=== PATIENT | male | born 1940 | race Caucasian/White ===

== ENCOUNTER 2022-12-13 13:33 | Outpatient (CLI) | payer MEDICARE, OTHER | END 2022-12-13 13:34 | disposition home or self-care (01) | LOC: LAB.N 13:33 | PROVIDERS: ATTEND Internal Medicine Medical Oncology | DX: D50.9 Iron deficiency anemia, unspecified (principal); C32.9 Malignant neoplasm of larynx, unspecified | CPT/HCPCS: 36415; 82668 ==

== ENCOUNTER 2023-01-24 12:14 | Outpatient (CLI) | payer MEDICARE, OTHER ==
[2023-01-24 17:43] LABS: BASOPHILS # (AUTO) 0.1 10^3/uL (0.0-0.1); EOSINOPHILS # (AUTO) 0.4 10^3/uL (0.0-0.7); EOSINOPHILS % (AUTO) 2.9 %; HCT - HEMATOCRIT 33.2 % (42.0-52.0); HGB - HEMOGLOBIN 10.2 g/dL (14.0-18.0); LYMPHOCYTES # (AUTO) 1.1 10^3/uL (1.5-3.5); LYMPHOCYTES % (AUTO) 8.6 %; MEAN CORPUSCULAR HGB CONC 30.7 g/dL (32.0-36.0); MEAN CORPUSCULAR VOLUME 97.6 fL (80.0-94.0); MEAN PLATELET VOLUME 10.8 fL (7.4-11.4); MONOCYTES % (AUTO) 7.5 %; NEUTROPHILS # (AUTO) 10.1 10^3/uL (1.5-6.6); NEUTROPHILS % (AUTO) 79.7 %; PLT - PLATELET COUNT 404 10^3/uL (130-450); RED CELL DISTRIBUTION WIDTH 16.2 % (12.0-15.0); WHITE BLOOD COUNT 12.7 x10^3/uL (4.8-10.8)
[2023-01-24 17:51] LABS: CALCIUM 8.7 mg/dL (8.5-10.3); CREATININE 1.3 mg/dL (0.6-1.2); POTASSIUM 4.1 mmol/L (3.5-5.0)
== END 2023-01-24 12:15 | disposition home or self-care (01) ==
LOC: LAB.N 12:14
PROVIDERS: ATTEND Internal Medicine Cardiovascular Disease
DX: I42.8 Other cardiomyopathies (principal)
CPT/HCPCS: 36415; 80048; 85025

== ENCOUNTER 2023-10-17 14:35 | Outpatient (CLI) | payer MEDICARE, OTHER | END 2023-10-17 14:36 | disposition critical access hospital (66) | LOC: EMS 14:35 | DX: R06.09 Other forms of dyspnea (principal); R09.89 Other specified symptoms and signs involving the circulatory and respiratory systems | CPT/HCPCS: A0425; A0429 ==

== ENCOUNTER 2023-10-17 14:55 | Emergency (ER) | payer MEDICARE, OTHER ==
[2023-10-17] MEDS ORDERED: IPRATROPIUM/ALBUTEROL 3 ML NEB INH STA (15:32)
--- NOTE | 2023-10-17 15:48 | ED Physician Documentation ---
History of Present Illness - Stated complaint Stated Complaint: SOA - Chief complaint Chief Complaint: Cardiac - History obtained from History obtained from: Patient, EMS - History of Present Illness Timing: How many days ago (3) Pain level max: 0 Pain level now: 0 - Additonal information Additional information: Patient is an 83-year-old male has had increasing dyspnea for the past 3 days. He has a history of stage III lung cancer. He states he has been out of breath with even minimal exertion. Has had coughing and congestion. He has had chills but no fevers that he is aware of. He noted that his oxygen levels were in the low 80s today at home and called 911. Oxygen level was 82 with EMS, brought in on oxygen. Review of Systems Constitutional: reports: Chills. denies: Fever Nose: denies: Rhinorrhea / runny nose, Congestion Respiratory: reports: Cough GI: denies: Vomiting, Diarrhea Skin: denies: Rash Musculoskeletal: denies: Neck pain, Back pain Neurologic: denies: Headache PD PAST MEDICAL HISTORY - Past Medical History Past Medical History: Yes Respiratory: Other Other Past Medical History: Lung CA - Past Surgical History Cardiovascular: Pacemaker - Allergies Allergies/Adverse Reactions: Allergies Allergy/AdvReac Type Severity Reaction Status Date / Time Sulfa (Sulfonamide Allergy Nausea Verified 10/17/23 15:41 Antibiotics) - Living Situation Living Situation: reports: With family Living Arrangement: reports: At home - Social History Does the pt smoke?: No Smoking Status: Never smoker PD ED PE NORMAL - Vitals Vital signs reviewed: Yes - General General: Alert and oriented X 3, No acute distress - HEENT HEENT: PERRL, Moist mucous membranes - Neck Neck: Supple, no meningeal sign - Cardiac Cardiac: Other (Pacemaker in place, regular rate) - Respiratory Respiratory: Other (Diffuse crackles bilaterally) - Abdomen Abdomen: Soft, Non tender, Non distended - Back Back: No spinal TTP - Derm Derm: Warm and dry - Extremities Extremities: No edema, No calf tenderness / cord - Neuro Neuro: Alert and oriented X 3 - Psych Psych: Normal mood, Normal affect Results - Vitals Vitals: Vital Signs - 24 hr 10/17/23 10/17/23 10/17/23 15:00 15:16 15:58 Temperature 36.5 C Heart Rate 82 86 78 Respiratory 16 24 17 Rate Blood Pressure 118/101 H 90/65 O2 Saturation 95 92 If not protocol 4 3 : Oxygen Flow, liters/minute 10/17/23 10/17/23 10/17/23 16:29 16:30 17:00 Temperature Heart Rate 90 90 90 Respiratory 19 23 21 Rate Blood Pressure 101/67 101/69 101/71 O2 Saturation 92 92 92 If not protocol 4 3 : Oxygen Flow, liters/minute 10/17/23 10/17/23 10/17/23 17:30 18:00 19:00 Temperature Heart Rate 90 91 90 Respiratory 20 21 22 Rate Blood Pressure 96/68 106/60 98/67 O2 Saturation 95 92 90 L If not protocol 3 3 4 : Oxygen Flow, liters/minute 10/17/23 10/17/23 10/17/23 19:30 20:00 21:00 Temperature Heart Rate 94 90 90 Respiratory 22 20 20 Rate Blood Pressure 106/74 94/65 O2 Saturation 93 93 93 If not protocol 4 4 4 : Oxygen Flow, liters/minute 10/17/23 21:30 Temperature Heart Rate 92 Respiratory 22 Rate Blood Pressure O2 Saturation 93 If not protocol 4 : Oxygen Flow, liters/minute Oxygen O2 Source Nasal cannula - EKG (time done) 1535 EKG releavant findings:: EKG personally interpreted by author of this note. Relevant findings are: Rate: Rate (enter#) (90) Rhythm: Paced - Labs Labs: Laboratory Tests 10/17/23 10/17/23 10/17/23 15:52 15:52 15:52 WBC 15.8 H RBC 2.43 L Hgb 7.6 L Hct 24.4 L MCV 100.4 H MCH 31.3 H MCHC 31.1 L RDW 17.7 H Plt Count 415 MPV 9.2 Neut # (Auto) Not Reportable Lymph # (Auto) Not Reportable Cook # (Auto) Not Reportable Eos # (Auto) Not Reportable Baso # (Auto) Not Reportable Absolute Nucleated RBC Not Reportable Total Counted 100 Band Neuts % (Manual) 0 Abnorm Lymph % (Manual) 0 Nucleated RBC % Not Reportable Neutrophils # (Manual) 13.3 H Lymphocytes # (Manual) 0.2 L Monocytes # (Manual) 2.1 H Eosinophils # (Manual) 0.3 Basophils # (Manual) 0.0 Differential Comment MANUAL DIFFERENTIAL Platelet Estimate NORMAL (130-450,000) Platelet Morphology NORMAL APPEARANCE RBC Morph Micro Appear 1+ POLYCHROMASIA Sodium 137 Potassium 4.5 Chloride 105 Carbon Dioxide 26 Anion Gap 6.0 BUN 32 H Creatinine 1.1 Estimated GFR (MDRD) 64 L Glucose 130 H Lactic Acid Calcium 8.7 Total Bilirubin 0.4 AST 17 ALT 9 L Alkaline Phosphatase 123 H Troponin I High Sens 1921.8 H* B-Natriuretic Peptide 1499 H Total Protein 6.4 Albumin 3.0 L Globulin 3.4 Albumin/Globulin Ratio 0.9 L Lipase 28 Nasal Adenovirus (PCR) Nasal B. parapertussis DNA (PCR) Nasal Coronavir 229E PCR Nasal Coronavir HKU1 PCR Nasal Coronavir NL63 PCR Nasal Coronavir OC43 PCR Nasal Enterovir/Rhinovir PCR Nasal Influenza B PCR Nasal Influenza A PCR Nasal Parainfluen 1 PCR Nasal Parainfluen 2 PCR Nasal Parainfluen 3 PCR Nasal Parainfluen 4 PCR Nasal RSV (PCR) Nasal B.pertussis DNA PCR Nasal C.pneumoniae (PCR) Julio Human Metapneumo PCR Nasal M.pneumoniae (PCR) Nasal SARS-CoV-2 (PCR) Blood Type Blood Type Recheck Antibody Screen 10/17/23 10/17/23 10/17/23 15:52 16:19 16:29 WBC RBC Hgb Hct MCV MCH MCHC RDW Plt Count MPV Neut # (Auto) Lymph # (Auto) Cook # (Auto) Eos # (Auto) Baso # (Auto) Absolute Nucleated RBC Total Counted Band Neuts % (Manual) Abnorm Lymph % (Manual) Nucleated RBC % Neutrophils # (Manual) Lymphocytes # (Manual) Monocytes # (Manual) Eosinophils # (Manual) Basophils # (Manual) Differential Comment Platelet Estimate Platelet Morphology RBC Morph Micro Appear Sodium Potassium Chloride Carbon Dioxide Anion Gap BUN Creatinine Estimated GFR (MDRD) Glucose Lactic Acid 1.2 Calcium Total Bilirubin AST ALT Alkaline Phosphatase Troponin I High Sens B-Natriuretic Peptide Total Protein Albumin Globulin Albumin/Globulin Ratio Lipase Nasal Adenovirus (PCR) NOT DETECTED Nasal B. parapertussis DNA (PCR) NOT DETECTED Nasal Coronavir 229E PCR NOT DETECTED Nasal Coronavir HKU1 PCR NOT DETECTED Nasal Coronavir NL63 PCR NOT DETECTED Nasal Coronavir OC43 PCR NOT DETECTED Nasal Enterovir/Rhinovir PCR NOT DETECTED Nasal Influenza B PCR NOT DETECTED Nasal Influenza A PCR NOT DETECTED Nasal Parainfluen 1 PCR NOT DETECTED Nasal Parainfluen 2 PCR NOT DETECTED Nasal Parainfluen 3 PCR NOT DETECTED Nasal Parainfluen 4 PCR NOT DETECTED Nasal RSV (PCR) NOT DETECTED Nasal B.pertussis DNA PCR NOT DETECTED Nasal C.pneumoniae (PCR) NOT DETECTED Julio Human Metapneumo PCR NOT DETECTED Nasal M.pneumoniae (PCR) NOT DETECTED Nasal SARS-CoV-2 (PCR) NOT DETECTED Blood Type Blood Type Recheck A POSITIVE Antibody Screen 10/17/23 16:31 WBC RBC Hgb Hct MCV MCH MCHC RDW Plt Count MPV Neut # (Auto) Lymph # (Auto) Cook # (Auto) Eos # (Auto) Baso # (Auto) Absolute Nucleated RBC Total Counted Band Neuts % (Manual) Abnorm Lymph % (Manual) Nucleated RBC % Neutrophils # (Manual) Lymphocytes # (Manual) Monocytes # (Manual) Eosinophils # (Manual) Basophils # (Manual) Differential Comment Platelet Estimate Platelet Morphology RBC Morph Micro Appear Sodium Potassium Chloride Carbon Dioxide Anion Gap BUN Creatinine Estimated GFR (MDRD) Glucose Lactic Acid Calcium Total Bilirubin AST ALT Alkaline Phosphatase Troponin I High Sens B-Natriuretic Peptide Total Protein Albumin Globulin Albumin/Globulin Ratio Lipase Nasal Adenovirus (PCR) Nasal B. parapertussis DNA (PCR) Nasal Coronavir 229E PCR Nasal Coronavir HKU1 PCR Nasal Coronavir NL63 PCR Nasal Coronavir OC43 PCR Nasal Enterovir/Rhinovir PCR Nasal Influenza B PCR Nasal Influenza A PCR Nasal Parainfluen 1 PCR Nasal Parainfluen 2 PCR Nasal Parainfluen 3 PCR Nasal Parainfluen 4 PCR Nasal RSV (PCR) Nasal B.pertussis DNA PCR Nasal C.pneumoniae (PCR) Julio Human Metapneumo PCR Nasal M.pneumoniae (PCR) Nasal SARS-CoV-2 (PCR) Blood Type A POSITIVE Blood Type Recheck Antibody Screen NEGATIVE - Rads (name of study) cxr Relevant Findings:: Final report received, See rad report PD Medical Decision Making - ED course Complexity details: reviewed results, re-evaluated patient, considered differential, d/w patient ED course: 83-year-old male with a history of stage III lung cancer, all of his care is at [facility]. He states he recently finished chemotherapy but is due to start a new infusion on Monday. Does not know what that infusion is. He sees Dr. Hewitt at [facility] for cardiology. He states that he has had a pacemaker implanted but does not have any cardiac stents or bypasses. No history of acute IL that he is aware of. His high sensory troponin is significantly elevated today. BNP significantly elevated. Chest x-ray could be pneumonia versus CHF. He was given Lasix as well as antibiotics. His white blood cell count is elevated as well. He does have chronic anemia but worsening today. We will recheck his hemoglobin in the morning to determine transfusion threshold. There are no beds available at any surrounding [facility]. Therefore the patient will be boarded in the emergency department. Care turned over to the [facility] emergency department physician. This document was made in part using voice recognition software. While efforts are made to proofread this document, sound alike and grammatical errors may occur. Departure - Departure Disposition: 02 Transfer Acute Care Hosp Clinical Impression: Hypoxia, NSTEMI, initial episode of care Pneumonia Qualifiers: Pneumonia type: due to unspecified organism Laterality: unspecified laterality Lung location: unspecified part of lung Qualified Code(s): J18.9 - Pneumonia, unspecified organism Anemia Qualifiers: Anemia type: unspecified type Qualified Code(s): D64.9 - Anemia, unspecified Heart failure Qualifiers: Heart failure type: unspecified Heart failure chronicity: unspecified Qualified Code(s): I50.9 - Heart failure, unspecified Condition: Stable Forms: PCP List
--- NOTE | 2023-10-17 15:52 | XRAY Report ---
PROCEDURE: Chest 1 View X-Ray INDICATIONS: Chest Pain TECHNIQUE: One view of the chest was acquired. COMPARISON: None. FINDINGS: Surgical changes and devices: Left chest wall pacemaker. Right-sided Port-A-Cath. Lungs and pleura: Bilateral patchy pulmonary opacities, greatest within the right mid and upper lung field. Mediastinum: Mediastinal contours appear normal. Heart size is normal. Bones and chest wall: No suspicious bony lesions. Overlying soft tissues appear unremarkable. IMPRESSION: Diffuse patchy bilateral pulmonary opacities, greatest within the right mid and upper lung field. Fin dings may represent infection. Underlying malignancy is not excluded. Recommend follow-up radiographs to resolution. Reviewed by: Ruddy Baig MD on 10/17/2023 3:51 PM PST Approved by: Ruddy Baig MD on 10/17/2023 3:51 PM PST Station ID: [id number]
[2023-10-17 15:56] LABS: BASOPHILS % (AUTO) 0.8 %; EOSINOPHILS % (AUTO) 0.6 %; HCT - HEMATOCRIT 24.4 % (42.0-52.0); HGB - HEMOGLOBIN 7.6 g/dL (14.0-18.0); LYMPHOCYTES % (AUTO) 3.5 %; MEAN CORPUSCULAR HEMOGLOBIN 31.3 pg (27.0-31.0); MEAN CORPUSCULAR HGB CONC 31.1 g/dL (32.0-36.0); MEAN CORPUSCULAR VOLUME 100.4 fL (80.0-94.0); MEAN PLATELET VOLUME 9.2 fL (7.4-11.4); MONOCYTES % (AUTO) 11.3 %; NEUTROPHILS % (AUTO) 83.3 %; PLT - PLATELET COUNT 415 10^3/uL (130-450); RED BLOOD COUNT 2.43 10^6/uL (4.70-6.10); RED CELL DISTRIBUTION WIDTH 17.7 % (12.0-15.0); WHITE BLOOD COUNT 15.8 x10^3/uL (4.8-10.8)
[2023-10-17 16:02] LABS: ABNORMAL LYMPHS % (MANUAL) 0 %; BAND NEUTROPHILS % (MANUAL) 0 %
[2023-10-17 16:33] LABS: ALBUMIN/GLOBULIN RATIO 0.9 (1.0-2.2); BILIRUBIN,TOTAL 0.4 mg/dL (0.2-1.0); CALCIUM 8.7 mg/dL (8.5-10.3); CREATININE 1.1 mg/dL (0.6-1.3); POTASSIUM 4.5 mmol/L (3.5-4.5); TOTAL PROTEIN 6.4 g/dL (6.4-8.9)
[2023-10-17 16:36] LABS: DIFFERENTIAL COMMENT MANUAL DIFFERENTIAL; EOSINOPHILS # (MANUAL) 0.3 10^3/uL (0-0.7); LYMPHOCYTES # (MANUAL) 0.2 10^3/uL (1.5-3.5); LYMPHOCYTES % (MANUAL) 1 %; MONOCYTES # (MANUAL) 2.1 10^3/uL (0.0-1.0); NEUTROPHILS # (MANUAL) 13.3 10^3/uL (1.5-6.6); PLATELET ESTIMATE, MANUAL NORMAL (130-450,000) (NORMAL); PLATELET MORPHOLOGY NORMAL APPEARANCE (NORMAL)
[2023-10-17] MEDS ORDERED: FUROSEMIDE 20 MG/2 ML VIAL IVP STA (16:55)
[2023-10-17] MEDS ORDERED: cefTRIAXone 1 GM VIAL IVP STA (16:56)
[2023-10-17] MEDS ORDERED: AZITHROMYCIN INJ 500 MG in SODIUM CHLORIDE 0.9% 250 ML IV STA (16:56)
[2023-10-17] MEDS ORDERED: HEPARIN 25000UNITS/500ML (D5W) 25,000 UNIT/500 ML BAG IV SCH (17:00)
[2023-10-17 17:45] LABS: B. PARAPERTUSSIS- RESP PCR PAN NOT DETECTED; B. PERTUSSIS- RESP PCR PANEL NOT DETECTED; C. PNEUMONIAE- RESP PCR PANEL NOT DETECTED; CORONAVIRUS 229E-RESP PCR NOT DETECTED; CORONAVIRUS HKU1-RESP PCR NOT DETECTED; CORONAVIRUS NL63-RESP PCR NOT DETECTED; CORONAVIRUS OC43-RESP PCR NOT DETECTED; HUMAN METAPNEUMOVIRUS NOT DETECTED; INFLUENZA A- RESP PCR PANEL NOT DETECTED; INFLUENZA B - RESP PCR PANEL NOT DETECTED; M. PNEUMONIAE- RESP PCR PANEL NOT DETECTED; PARAINFLUENZA VIRUS 1 NOT DETECTED; PARAINFLUENZA VIRUS 2 NOT DETECTED; PARAINFLUENZA VIRUS 3 NOT DETECTED; PARAINFLUENZA VIRUS 4 NOT DETECTED; RHINOVIRUS/ENTEROVIRUS NOT DETECTED; RSV- RESP PCR PANEL NOT DETECTED; SARS-CoV-2 -RESP PCR PANEL NOT DETECTED
[2023-10-17] MEDS ORDERED: ASPIRIN CHEW 81 MG TABLET PO STA (17:53)
[2023-10-17] MEDS ORDERED: ACETAMINOPHEN 500 MG TABLET PO PRN (22:23)
[2023-10-17] MEDS ORDERED: ONDANSETRON 4 MG/2 ML VIAL IVP PRN (22:23)
[2023-10-18] MEDS ORDERED: iohexoL-300 100 ML VIAL IVP ONE (03:51)
[2023-10-18 04:46] VITALS: BP 113/77; O2SAT 91
[2023-10-18] MEDS ORDERED: PANTOPRAZOLE 40 MG TABLET PO SCH (07:00)
--- NOTE | 2023-10-18 07:40 | ED Physician Documentation ---
ED Addendum - Addendum Addendum: 10/18/23 07:37 The patient was signed out to me at change of shift, pending final disposition after presenting with dyspnea and being found to have a CHF exacerbation and NSTEMI in the setting of stage III lung cancer. The patient was actually fairly stable throughout his stay in the emergency department after onset of my shift. His troponin was found to be trending down from 1900 to 1700. He had minimal complaints. I was able to speak with Dr. Ennis, the hospitalist at [facility] and she did accept the patient in transfer but requested a CT angiogram of the chest. This showed extensive bilateral pulmonary infiltrates consistent with pneumonia, as well as mediastinal adenopathy which was felt to be reactive. No specific notation of any malignant appearing masses. The patient was agreeable to transfer and was notified of his acceptance. Final impression: See original note Disposition: Transfer to acute care hospital in serious but stable condition.
--- NOTE | 2023-10-18 08:07 | CT Report ---
PROCEDURE: ANGIO CHEST W/WO INDICATIONS: dyspnea CONTRAST: 80mL Omni 300 TECHNIQUE: After the administration of intravenous contrast, 2 mm axial images were acquired from the pulmonary apices to the posterior costophrenic angles during the arterial phase. In addition, 1 mm lung kernel and 5 mm soft tissue kernel reconstructions were performed. 3-dimensional coronal oblique maximum int ensity projection (MIP) reformats, 8 mm axial MIP, and 5 mm coronal and sagittal MPR reformats were t hen performed through the thorax. For radiation dose reduction, the following was used: automated exp osure control, adjustment of mA and/or kV according to patient size. COMPARISON: Chest radiograph 10/17/2023. FINDINGS: Image quality: Excellent. Large vessels: No filling defects within the opacified pulmonary arteries, accounting for motion and contrast timing. Bilateral distal segmental and subsegmental branches of pulmonary arteries are subop timally opacified. No evidence of acute aortic syndrome or aortic aneurysm. Lungs and pleura: Extensive airspace consolidations are noted scattered throughout bilateral lung fie lds. Small bilateral pleural effusion is also seen. No pneumothorax. Mediastinum: Heart size is enlarged. No pericardial effusion. Left chest wall pacemaker leads are see n in right atrium, right ventricle and left ventricle. No large vessel abnormality. Moderate atherosc lerotic calcifications and coronary vessels and thoracic aorta is seen. Enlarged mediastinal and demetris r lymph nodes are seen measures up to 2.3 cm in size in right paratracheal space series 3 image 59. Chest wall and lower neck: Right chest wall Port-A-Cath tip is in SVC. Thyroid is unremarkable. No ax illary or supraclavicular adenopathy by size. Bones: No aggressive osseous abnormality. Upper Abdomen: Calcified stone is seen in dependent portion of gallbladder lumen. IMPRESSION: 1. No large central pulmonary emboli. Suboptimal opacification of more distal bilateral pulmonary art margarita branches Limited evaluation. 2. Extensive bilateral airspace opacities suggestive of extensive bilateral pulmonary infiltrates. Sm all bilateral pleural effusion. No pneumothorax. 3. Enlarged mediastinal or hilar lymph nodes likely represent reactive inflammatory nodes. 4. Cardiac megaly, no pericardial effusion. 5. Cholelithiasis without CT evidence of acute cholecystitis. No significant discrepancies from preliminary reading. Reviewed by: Willie Gil MD on 10/18/2023 8:06 AM PST Approved by: Willie Gil MD on 10/18/2023 8:06 AM PST Station ID: [id number]
== END 2023-10-18 04:43 | disposition short-term general hospital (02) ==
LOC: EDUNIT# → ED 14:55
DX: I21.4 Non-ST elevation (NSTEMI) myocardial infarction (principal); I50.9 Heart failure, unspecified; D49.1 Neoplasm of unspecified behavior of respiratory system
CPT/HCPCS: 36415; 71045; 71275; 80053; 83605; 83690; 83880; 84484; 85025; 85730; 86850; 86900; 86901; 87040; 87633; 93005; 94640; 96365; 96366; 96375; 99285; A9270; Q9967; 80048

== ENCOUNTER 2023-10-18 04:41 | Outpatient (CLI) | payer MEDICARE, OTHER | END 2023-10-18 23:59 | disposition short-term general hospital (02) | LOC: EMS 04:41 | PROVIDERS: ATTEND Emergency Medicine | DX: I21.4 Non-ST elevation (NSTEMI) myocardial infarction (principal); I50.9 Heart failure, unspecified; C34.90 Malignant neoplasm of unspecified part of unspecified bronchus or lung; R09.02 Hypoxemia | CPT/HCPCS: A0425; A0426 ==

== ENCOUNTER 2024-01-11 09:35 | Outpatient (CLI) | payer MEDICARE, OTHER | END 2024-01-11 09:36 | disposition EMS.NT | LOC: EMS 09:35 | DX: R04.0 Epistaxis (principal); Z79.01 Long term (current) use of anticoagulants ==

== ENCOUNTER 2024-01-19 23:07 | Outpatient (CLI) | payer MEDICARE, OTHER | END 2024-01-19 23:59 | disposition critical access hospital (66) | LOC: EMS 23:07 | DX: R53.1 Weakness (principal); R42 Dizziness and giddiness; Z99.81 Dependence on supplemental oxygen | CPT/HCPCS: A0425; A0429 ==

== ENCOUNTER 2024-01-19 23:51 | Emergency (ER) | payer MEDICARE, OTHER ==
[2024-01-20] MEDS: SODIUM CHLORIDE 0.9% 1,000 ML IV STA (00:24)
[2024-01-20 00:25] LABS: BASOPHILS % (AUTO) 0.2 %; EOSINOPHILS % (AUTO) 0.2 %; HCT - HEMATOCRIT 25.1 % (42.0-52.0); HGB - HEMOGLOBIN 7.4 g/dL (14.0-18.0); LYMPHOCYTES # (AUTO) 0.5 10^3/uL (1.5-3.5); LYMPHOCYTES % (AUTO) 10.2 %; MEAN CORPUSCULAR HEMOGLOBIN 28.7 pg (27.0-31.0); MEAN CORPUSCULAR HGB CONC 29.5 g/dL (32.0-36.0); MEAN CORPUSCULAR VOLUME 97.3 fL (80.0-94.0); MEAN PLATELET VOLUME 9.5 fL (7.4-11.4); MONOCYTES # (AUTO) 0.7 10^3/uL (0.0-1.0); MONOCYTES % (AUTO) 13.6 %; PLT - PLATELET COUNT 238 10^3/uL (130-450); RED BLOOD COUNT 2.58 10^6/uL (4.70-6.10); RED CELL DISTRIBUTION WIDTH 16.9 % (12.0-15.0); WHITE BLOOD COUNT 5.3 x10^3/uL (4.8-10.8)
[2024-01-20 00:43] LABS: ALBUMIN 2.8 g/dL (3.2-5.5); ALBUMIN/GLOBULIN RATIO 0.8 (1.0-2.2); BILIRUBIN,TOTAL 0.9 mg/dL (0.2-1.0); CALCIUM 8.5 mg/dL (8.5-10.3); CREATININE 1.1 mg/dL (0.6-1.3); POTASSIUM 4.2 mmol/L (3.5-4.5); TOTAL PROTEIN 6.1 g/dL (6.4-8.9)
--- NOTE | 2024-01-20 01:05 | ED Physician Documentation ---
History of Present Illness - Stated complaint Stated Complaint: DIZZY - GLF - Chief complaint Chief Complaint: Neuro - History obtained from History obtained from: Patient, Family, EMS - History of Present Illness Timing: Today - Additonal information Additional information: Anthony Rice is a 83-year-old male who has been treated for lung cancer and he is currently on a pause from treatment. He has had some reaction to his chemotherapy. He is here in the emergency department tonight because he has developed profound weakness and exertional dyspnea worsening over the past 10 days. He collapsed onto his while she was trying to dress a bedsore. He was seen in the emergency department in [place] 8 days ago with a nosebleed that would not stop and he had the nosebleed fixed. He continues to taste blood draining the bowel in the back of his throat. He was seen here in our emergency department in October and transferred to [facility] with bilateral pneumonia, CHF and symptomatic anemia. He had transfusion at [facility]. He felt improved on return to home. Review of Systems Constitutional: denies: Fever Eyes: denies: Decreased vision Ears: denies: Ear pain Nose: denies: Rhinorrhea / runny nose, Congestion Throat: denies: Sore throat Cardiac: denies: Chest pain / pressure, Palpitations Respiratory: reports: Dyspnea (exertional and progressive) GI: denies: Vomiting, Diarrhea : denies: Dysuria Skin: denies: Rash Neurologic: reports: Generalized weakness. denies: Focal weakness, Numbness, Difficulty speaking PD PAST MEDICAL HISTORY - Past Medical History Respiratory: Other - Past Surgical History Cardiovascular: Pacemaker - Present Medications Home Medications: Ambulatory Orders Medication Instructions Recorded Confirmed Apixaban [Eliquis] 5 mg PO DAILY 01/20/24 01/20/24 Celecoxib [Celebrex] 200 mg PO DAILY 01/20/24 01/20/24 Dapsone 100 mg PO DAILY 01/20/24 01/20/24 Furosemide [Lasix] 20 mg PO DAILY 01/20/24 01/20/24 Metoprolol Succinate [Kapspargo 25 mg PO DAILY 01/20/24 01/20/24 Sprinkle] Simvastatin [Zocor] 10 mg PO DAILY 01/20/24 01/20/24 predniSONE [Deltasone] 10 mg PO DAILY 01/20/24 01/20/24 - Allergies Allergies/Adverse Reactions: Allergies Allergy/AdvReac Type Severity Reaction Status Date / Time Sulfa (Sulfonamide Allergy Nausea Verified 10/17/23 15:41 Antibiotics) - Social History Does the pt smoke?: No Smoking Status: Never smoker PD ED PE NORMAL - Vitals Vital signs reviewed: Yes (hpyertensive ) - General General: Other (Thin elderly male with speech latency and delay in execution of motor commands has NC oxygen in place. ) - HEENT HEENT: Atraumatic, PERRL, EOMI, Other (parched mucous membranes ) - Cardiac Cardiac: RRR, No murmur, Other - Respiratory Respiratory: No respiratory distress, Other (diminished breath sounds in the right base. 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 ) Results - Vitals Vitals: Vital Signs - 24 hr 01/20/24 01/20/24 01/20/24 06:25 06:27 06:55 Temperature 36.5 C 36.5 C Heart Rate 90 Heart Rate [ 90 90 Monitoring electrodes] Heart Rate [ Supine] Respiratory 18 18 18 Rate Blood Pressure 121/83 H Blood Pressure 117/83 H 117/83 H [Right Brachial artery] Blood Pressure [Sitting] Blood Pressure [Standing] Blood Pressure [Supine] O2 Saturation 97 97 97 If not protocol 2 2 2 : Oxygen Flow, liters/minute 01/20/24 01/20/24 01/20/24 09:31 10:30 12:42 Temperature 36.5 C Heart Rate 83 90 Heart Rate [ Monitoring electrodes] Heart Rate [ 91 Supine] Respiratory 18 18 Rate Blood Pressure 117/88 H 116/84 H Blood Pressure [Right Brachial artery] Blood Pressure 111/75 [Sitting] Blood Pressure 116/56 L [Standing] Blood Pressure 98/85 H [Supine] O2 Saturation 97 96 If not protocol 2 2 : Oxygen Flow, liters/minute 01/20/24 14:31 Temperature Heart Rate 91 Heart Rate [ Monitoring electrodes] Heart Rate [ Supine] Respiratory 18 Rate Blood Pressure 133/87 H Blood Pressure [Right Brachial artery] Blood Pressure [Sitting] Blood Pressure [Standing] Blood Pressure [Supine] O2 Saturation 96 If not protocol : Oxygen Flow, liters/minute Oxygen O2 Source Nasal cannula - EKG (time done) 0004 EKG releavant findings:: EKG personally interpreted by author of this note. Relevant findings are: Rhythm: Atrial fibrillation, Paced Compare to prior EKG: Unchanged from prior EKG (SPT 10-17-23 no sig change ) Computer interpretation: Agree with computer - Labs Labs: Laboratory Tests 01/20/24 01/20/24 01/20/24 00:00 00:00 00:00 WBC 5.3 RBC 2.58 L Hgb 7.4 L Hct 25.1 L MCV 97.3 H MCH 28.7 MCHC 29.5 L RDW 16.9 H Plt Count 238 MPV 9.5 Neut # (Auto) 4.0 Lymph # (Auto) 0.5 L [place] # (Auto) 0.7 Eos # (Auto) 0.0 Baso # (Auto) 0.0 Absolute Nucleated RBC 0.00 Nucleated RBC % 0.0 Sodium 144 Potassium 4.2 Chloride 102 Carbon Dioxide 37 H Anion Gap 5.0 L BUN 66 H Creatinine 1.1 Estimated GFR (MDRD) 64 L Glucose 106 H Lactic Acid 0.8 Calcium 8.5 Total Bilirubin 0.9 AST 16 ALT 20 Alkaline Phosphatase 72 Total Protein 6.1 L Albumin 2.8 L Globulin 3.3 Albumin/Globulin Ratio 0.8 L Lipase 64 Urine Color Urine Clarity Urine pH Ur Specific [place] Urine Protein Urine Glucose (UA) Urine Ketones Urine Occult Blood Urine Nitrite Urine Bilirubin Urine Urobilinogen Ur Leukocyte Esterase Ur Microscopic Review Urine Culture Comments Blood Type Antibody Screen Crossmatch IS Only 01/20/24 01/20/24 01/20/24 02:21 06:20 06:30 WBC RBC Hgb 8.0 L Hct 27.0 L MCV MCH MCHC RDW Plt Count MPV Neut # (Auto) Lymph # (Auto) [place] # (Auto) Eos # (Auto) Baso # (Auto) Absolute Nucleated RBC Nucleated RBC % Sodium Potassium Chloride Carbon Dioxide Anion Gap BUN Creatinine Estimated GFR (MDRD) Glucose Lactic Acid Calcium Total Bilirubin AST ALT Alkaline Phosphatase Total Protein Albumin Globulin Albumin/Globulin Ratio Lipase Urine Color YELLOW Urine Clarity CLEAR Urine pH 6.5 Ur Specific [place] 1.010 Urine Protein NEGATIVE Urine Glucose (UA) NEGATIVE Urine Ketones NEGATIVE Urine Occult Blood NEGATIVE Urine Nitrite NEGATIVE Urine Bilirubin NEGATIVE Urine Urobilinogen 2 H Ur Leukocyte Esterase NEGATIVE Ur Microscopic Review NOT INDICATED Urine Culture Comments NOT INDICATED Blood Type A POSITIVE Antibody Screen NEGATIVE Crossmatch IS Only See Detail - Rads (name of study) chest Relevant Findings:: Prelim report reviewed (Impression: No acute cardiopulmonary process. Mild cardiomegaly.), EMP independent interpretation of test Procedures - IVC sono (time) 0005 Bedside IVC sono: IVC measures (cm) (0.82), Dehydration (est 2 liter deficit) PD Medical Decision Making - ED course Complexity details: reviewed old records, reviewed results, re-evaluated patient, considered differential, d/w patient, d/w family Reviewed Lab Results: We reviewed a complete blood count showing a normal white blood cell count of 5.3 a depressed hemoglobin of 7.4 and a depressed hematocrit of 25.1 platelet count was normal at 238,000 these results were compared to prior results from October of last year. Shortly before he was transferred to another hospital his hemoglobin was 7.6 and his hematocrit was 24.4. He required transfusion during that hospitalization. Chemistries showed markedly elevated BUN of 66 with a normal creatinine of 1.1. Sodium, potassium and chloride were normal. lactate 0.8. liver functions are normal with exception of low protein and albumin. I interpreted these chemistries to indicate the patient is likely digesting blood with the elevated BUN of 66 they otherwise do not provide additional diagnostic information. Urinalysis is clear and negative. ED course: 83-year-old Anthony Harris presents to the emergency department after a collapse at home while he was being attended to by his . He did not injure himself in the fall. He is on Eliquis. He has a chief complaint of generalized weakness. He has had progressive weakness and shortness of breath over the past 6 months. He has previously been admitted to [facility] in October of this year with pneumonia congestive failure and anemia requiring transfusion. He spent 10 days at [facility] felt some improved on return to home. He has recently been into the emergency department in [place] a little more than 1 week ago with a nosebleed which has persisted. His hemoglobin at that time was 9.6. Today he presents to the emergency department with progressive weakness and exertional dyspnea with a hemoglobin of 7.4. He appears to have symptomatic anemia and he is transfused a unit of packed red blood cells. He is found to be dehydrated on interrogation the inferior vena cava and he is administered saline as well. Administered a dose of dexamethasone as well. He did refuse to go see ENT after his visit to [facility] and I took this opportunity to call his contract loader and ask about discontinuation of the Eliquis and he recommended we discontinue this for the time being and if his bleeding is under control he can consider restarting it. He recommended starting aspirin. At the conclusion of treatment he continues to feel poorly and feels that he will not be able to be cared for at home by his .At shift change this poor man is left the emergency department under the care of Dr. Summers anticipating a social work consult for potential additional help. I did not find a specifically remediable process to admit the patient to the hospital for. Departure - Departure Disposition: Home, Self Care Clinical Impression: Left-sided epistaxis, Weakness generalized Anemia Qualifiers: Anemia type: iron deficiency Iron deficiency anemia type: chronic blood loss Qualified Code(s): D50.0 - Iron deficiency anemia secondary to blood loss (chronic) Condition: Poor Follow-Up: [facility] [Provider Group] Comments: You were given a unit of blood to improve your blood count. You were assessed by physical therapy and they had some recommendations. Will try to order you a gait belt that would help with you getting up and down. Continue usual medications except for your blood thinner. Hold your blood thinner for a week or so and see if that helps allow the nosebleed to finally stop. I would suggest using a saline nasal spray 2 or 3 spirits is on the side that is bleeding to clear some of the blood and clots 3-4 times daily, followed by an Afrin nose spray once.'s 3-4 times daily. This tries to shrink the blood flow and allow better healing. Then take a Q-tip and to a comfortable length of the nostril, rub a little ointment such as Vaseline or so on the wall of the nostril. Follow-up with your primary care and oncologist. You could follow-up with the ENT as well regarding the nose. Forms: PCP List Discharge Date/Time: 01/20/24 14:31
--- NOTE | 2024-01-20 01:35 | XRAY Report ---
PROCEDURE: Chest 1V INDICATIONS: chest pain TECHNIQUE: One view of the chest was acquired. COMPARISON: Chest radiographs 10/17/2023, and CT 10/18/2023. FINDINGS: Surgical changes and devices: A cardiac pacemaker is seen with pulse generator in the left chest. Ri ght chest Port-A-Cath is seen with catheter tip projecting over the superior vena cava. Lungs and pleura: No pleural effusions or pneumothorax. Chronic appearing interstitial lung markings . No focal consolidation. Mediastinum: Mediastinal contours appear normal. Heart size is mildly enlarged. Bones and chest wall: No suspicious bony lesions. Overlying soft tissues appear unremarkable. Bon es are osteopenic. IMPRESSION: No acute cardiopulmonary process. Mild cardiomegaly. Reviewed by: Darryl Faustin MD on 01/20/2024 1:34 AM PDT Approved by: Darryl Faustin MD on 01/20/2024 1:34 AM PDT Station ID: [id number]
[2024-01-20 06:34] LABS: BILIRUBIN,URINE NEGATIVE (NEGATIVE); GLUCOSE, URINE (UA) NEGATIVE (NEGATIVE); KETONES,URINE (UA) NEGATIVE (NEGATIVE); LEUKOCYTE ESTERASE, URINE NEGATIVE (NEGATIVE); NITRITE,URINE NEGATIVE (NEGATIVE); OCCULT BLOOD,URINE NEGATIVE (NEGATIVE); PH,URINE 6.5 PH (5.0-7.5); PROTEIN,URINE NEGATIVE (NEGATIVE); UROBILINOGEN,URINE 2 E.U./dL (NORMAL)
[2024-01-20 06:37] LABS: CLARITY,URINE CLEAR (CLEAR)
[2024-01-20] MEDS: DEXAMETHASONE 10 MG/ML VIAL IVP STA (06:52)
[2024-01-20 12:48] VITALS: O2SAT 96
--- NOTE | 2024-01-20 13:33 | ED Physician Documentation ---
ED Addendum - Addendum Addendum: 01/20/24 13:29 The patient was assessed by physical therapy. They did have recommendations for the patient's mobility. Social work talked with the patient and his spouse. They consider the idea of rehab but they couples preference was to try to stay at home. I did order home health with home nursing, physical therapy, home and school visitor. The patient will be set up with a gait belt to help with the family getting him up and down. They are feeling sad for discharge at this time. Disposition: The patient discharged home in stable condition. Diagnoses: 1. Gait instability 2. Symptomatic anemia 3 persistent nosebleed mild 4. Lung cancer 01/20/24 13:33
[2024-01-20 14:36] VITALS: BP 133/87
== END 2024-01-20 14:31 | disposition home or self-care (01) ==
LOC: EDUNIT# → ED 23:51
DX: E86.0 Dehydration (principal); D50.0 Iron deficiency anemia secondary to blood loss (chronic); R04.0 Epistaxis; Z79.01 Long term (current) use of anticoagulants; R53.1 Weakness; R26.89 Other abnormalities of gait and mobility; C34.90 Malignant neoplasm of unspecified part of unspecified bronchus or lung
CPT/HCPCS: 36415; 36430; 71045; 80053; 81003; 83605; 83690; 85014; 85018; 85025; 86850; 86900; 86901; 86920; 93005; 96361; 96374; 97162; 99284; 99285; P9016; 81001; 87086

== ENCOUNTER 2024-02-06 08:00 | Outpatient (CLI) | payer MEDICARE, OTHER | END 2024-02-06 23:59 | disposition home or self-care (01) | LOC: PC 08:00 | PROVIDERS: ATTEND Nurse Practitioner Gerontology | DX: Z51.5 Encounter for palliative care (principal); C34.12 Malignant neoplasm of upper lobe, left bronchus or lung; I11.0 Hypertensive heart disease with heart failure; I50.9 Heart failure, unspecified; J96.10 Chronic respiratory failure, unspecified whether with hypoxia or hypercapnia; E43 Unspecified severe protein-calorie malnutrition; D50.9 Iron deficiency anemia, unspecified; R04.0 Epistaxis; H61.23 Impacted cerumen, bilateral; R53.83 Other fatigue; R53.1 Weakness; R63.4 Abnormal weight loss; S31.819A Unspecified open wound of right buttock, initial encounter; R13.10 Dysphagia, unspecified; Z79.899 Other long term (current) drug therapy; Z79.52 Long term (current) use of systemic steroids; Z79.2 Long term (current) use of antibiotics; Z79.01 Long term (current) use of anticoagulants; Z71.89 Other specified counseling; Z66 Do not resuscitate; Z99.81 Dependence on supplemental oxygen | CPT/HCPCS: 99345 ==

== ENCOUNTER 2024-02-09 08:00 | Outpatient (CLI) | payer MEDICARE, OTHER | END 2024-02-09 23:59 | disposition home or self-care (01) | LOC: PC 08:00 | PROVIDERS: ATTEND Nurse Practitioner Gerontology | DX: Z51.5 Encounter for palliative care (principal); I11.0 Hypertensive heart disease with heart failure; I50.9 Heart failure, unspecified; R54 Age-related physical debility; R63.0 Anorexia; R13.10 Dysphagia, unspecified; F41.9 Anxiety disorder, unspecified; M62.81 Muscle weakness (generalized); R60.0 Localized edema; C34.12 Malignant neoplasm of upper lobe, left bronchus or lung; Z79.899 Other long term (current) drug therapy; Z79.52 Long term (current) use of systemic steroids; I48.91 Unspecified atrial fibrillation; Z74.09 Other reduced mobility; R32 Unspecified urinary incontinence; M17.0 Bilateral primary osteoarthritis of knee; Z66 Do not resuscitate | CPT/HCPCS: 99350 ==

== ENCOUNTER 2024-02-11 08:00 | Outpatient (CLI) | payer MEDICARE, OTHER | END 2024-02-11 23:59 | disposition home or self-care (01) | LOC: PC 08:00 | PROVIDERS: ATTEND Nurse Practitioner Gerontology | DX: Z53.9 Procedure and treatment not carried out, unspecified reason (principal) | CPT/HCPCS: 99426 ==

== ENCOUNTER 2024-02-11 14:15 | Outpatient (CLI) | payer MEDICARE, OTHER | END 2024-02-11 14:16 | disposition E | LOC: EMS 14:15 ==